=== PATIENT | female | born 1990 | race Caucasian/White ===

== ENCOUNTER 2017-05-15 17:52 | Emergency (ER) | payer MEDICAID ==
[2017-05-15 18:05] VITALS: TEMP 98.8
[2017-05-15 18:28] LABS: COLOR YELLOW; LEUKOCYTE ESTERASE,URINE NEGATIVE (NEGATIVE); NITRITE,URINE NEGATIVE (NEGATIVE)
[2017-05-15] MEDS ORDERED: NS 1,000 ML IV ONE (18:38)
[2017-05-15] MEDS ORDERED: ONDANSETRON 4 MG/2 ML VIAL IVP ONE ×3 (18:38→20:25)
[2017-05-15 18:54] LABS: % IMMATURE GRANULYOCYTES 0.3 % (0.0-1.1); ABSOLUTE IMMATURE GRANULOCYTES 0.03 10^3/uL (0.00-0.10); ADD DIFF? NO; ADD MORPH? NO; ADD SCAN? NO; ATYPICAL LYMPHOCYTE FLAG 0 (0-99); FRAGMENT RBC FLAG 0 (0-99); HEMOGLOBIN 14.2 g/dL (12.6-16.3); LEFT SHIFT FLG 0 (0-99); LIPEMIA HEMOLYSIS FLAG 90 (0-99); MEAN CELL HEMOGLOBIN 26.9 pg (27.9-34.1); MEAN CELL HEMOGLOBIN CONCENTR. 34.6 g/dL (32.4-36.7); MEAN CELL VOLUME 77.7 fL (81.5-99.8); MEAN PLATELET VOLUME 9.9 fL (8.7-11.7); PLATELET CLUMPS FLAG 0 (0-99); PLATELET COUNT 400 10^3/uL (150-400); RED BLOOD CELL COUNT 5.28 10^6/uL (4.18-5.33); RED CELL DISTRIBUTION WIDTH 12.6 % (11.5-15.2)
[2017-05-15] MEDS ORDERED: LIDOCAINE 1% 100 MG in NS 100 ML IV ONE (18:55)
--- NOTE | 2017-05-15 19:00 | EDPHY ---
H & P Stated Complaint: abd back pain urinary frequency x 3 days Time Seen by Provider: 05/15/17 18:47 HPI/ROS: CHIEF COMPLAINT: Bilateral lower abdominal pain HISTORY OF PRESENT ILLNESS: The patient is a 26-year-old female with a history of polycystic ovarian disease and several ovarian cysts that required surgical drainage who comes to the emergency department complaining of bilateral lower abdominal pain right greater than left. She has not had her appendix or gallbladder removed. She states that her symptoms have been present for about 4 days and fluctuating. She had a fever of 101 three days ago but it resolved over the last 2 days. She also has chronic low back pain and received steroid injections yesterday. She feels that this is a separate issue. She also complained of dysuria. She denies risk of . No vaginal bleeding or discharge. REVIEW OF SYSTEMS: Constitutional: denies: chills, fever, recent illness, recent injury EENTM: denies: blurred vision, double vision, nose congestion Respiratory: denies: cough, shortness of breath Cardiac: denies: chest pain, irregular heart rate, lightheadedness, palpitations Gastrointestinal/Abdominal: See HPI Genitourinary: denies: dysuria, frequency, hematuria, pain Musculoskeletal: denies: joint pain, muscle pain Skin: denies: lesions, rash, jaundice, bruising Neurological: denies: headache, numbness, paresthesia, tingling, dizziness, weakness Hematologic/Lymphatic: denies: blood clots, easy bleeding, easy bruising Immunologic/allergic: denies: HIV/AIDS, transplant EXAM: GENERAL: Well-appearing, obese and in no acute distress. HEAD: Atraumatic, normocephalic. EYES: Pupils equal round and reactive to light, extraocular movements intact, sclera anicteric, conjunctiva are normal. ENT: TMs normal, nares patent, oropharynx clear without exudates. Moist mucous membranes. NECK: Normal range of motion, supple without lymphadenopathy or JVD. LUNGS: Breath sounds clear to auscultation bilaterally and equal. No wheezes rales or rhonchi. HEART: Regular rate and rhythm without murmurs, rubs or gallops. ABDOMEN: Mild bilateral lower quadrant tenderness no guarding or rebound BACK: No CVA tenderness, no spinal tenderness, step-offs or deformities EXTREMITIES: Normal range of motion, no pitting or edema. No clubbing or cyanosis. NEUROLOGICAL: Cranial nerves II through XII grossly intact. Normal speech, normal gait. 5/5 strength, normal movement in all extremities, normal sensation PSYCH: Normal mood, normal affect. SKIN: Warm, dry, normal turgor, no visible rashes or lesions. Source: Patient Exam Limitations: No limitations - Personal History LMP (Females 10-55): 8-14 Days Ago Current Tetanus Diphtheria and Acellular Pertussis (TDAP): Yes Tetanus Vaccine Date: 12/2014 - Medical/Surgical History Hx Asthma: No Hx Chronic Respiratory Disease: No Hx Diabetes: No Hx Cardiac Disease: No Hx Renal Disease: No Hx Cirrhosis: No Hx Alcoholism: No Hx HIV/AIDS: No Hx Splenectomy or Spleen Trauma: No Other PMH: ANXIETY, HTN, TACHYCARDIA, DEPRESSION, FREQ UTI, PCOS, ORTHO, STAPH - Family History Significant Family History: No pertinent family hx - Social History Smoking Status: Heavy smoker Alcohol Use: Sober Drug Use: None Constitutional: Initial Vital Signs Temperature (C) 37.1 C 05/15/17 17:58 Heart Rate 98 05/15/17 17:58 Respiratory Rate 20 05/15/17 17:58 Blood Pressure 133/94 H 05/15/17 17:58 O2 Sat (%) 94 05/15/17 17:58 O2 Delivery Mode Room Air Allergies/Adverse Reactions: metoclopramide HCl [From Reglan] Allergy (Unknown, Verified 05/15/17 18:05) Home Medications: Medication Instructions Recorded Propranolol HCl [Inderal 20mg (*)] 60 mg PO BID #30 tab 02/16/15 QUEtiapine FUMARATE [Seroquel 100 100 mg PO HS #10 tab 02/16/15 mg (*)] clonIDINE [Catapres (*)] 0.2 mg PO TID #20 tab 02/16/15 tiZANidine HCL 03/08/15 Amlodipine Besylate 05/15/17 Effexor 05/15/17 Prazosin HCl 05/15/17 Medical Decision Making - Diagnostics Imaging Results: Imaging Impressions Pelvic/Renal Ultrasound 05/15/17 18:56 Impression: 1. There is a simple-appearing 2.6 cm right ovarian cyst, with no evidence of torsion or free fluid. 2. Trace endocervical canal fluid with some very mild echogenic fullness and trace venous flow, which is nonspecific. Correlation with a Pap smear is suggested, if not recently performed. Findings were discussed with JESSENIA SANCHEZ MD at 19:59, on 05/15/2017. Imaging: Discussed imaging studies w/ international account manager Radiologist ED Course/Re-evaluation: The patient is on a narcotic caution from 2014. At that time she had multiple prescriptions from multiple states and was reportedly lying to staff about how much opiates she was taking. I informed her that we would treat her with non narcotics here in the emergency department. 8:00 p.m. we discussed the patient's imaging and lab results which are overall reassuring. She is not having significant relief from the lidocaine. I will treat her with ketamine. She states that she is not supposed to get Toradol or ibuprofen because of her recent lumbar injection. She has had a Pap smear within the year. 8:50 p.m. the patient's pain is improving. We will try dose of Haldol. 9:15 p.m. the patient's pain is improved. She would like to go home. I will give her a take-home pack of Vicodin until she can follow up with OBGYN. Differential Diagnosis: Partial list of the Differential diagnosis considered include but were not limited to; ovarian cyst, ovarian torsion, appendicitis and although unlikely based on the history and physical exam, I also considered urinary tract infection, kidney stone, endometriosis, cancer, obstruction, C diff. I discussed these differential diagnoses and the plan with the patient as well as the usual and expected course. The patient understands that the diagnosis is provisional and that in medicine we are not always correct and that further workup is often warranted. Usual and customary warnings were given. All of the patient's questions were answered. The patient was instructed to return to the emergency department should the symptoms at all worsen or return, otherwise to followup with the physician as we discussed. - Data Points Laboratory Results: Laboratory Results 05/15/17 18:30 05/15/17 18:30 05/15/17 05/15/17 05/15/17 18:30 18:30 18:30 WBC 11.33 10^3/uL H 10^3/uL (3.80-9.50) RBC 5.28 10^6/uL 10^6/uL (4.18-5.33) Hgb 14.2 g/dL g/dL (12.6-16.3) Hct 41.0 % % (38.0-47.0) MCV 77.7 fL L fL (81.5-99.8) MCH 26.9 pg L pg (27.9-34.1) MCHC 34.6 g/dL g/dL (32.4-36.7) RDW 12.6 % % (11.5-15.2) Plt Count 400 10^3/uL 10^3/uL (150-400) MPV 9.9 fL fL (8.7-11.7) Neut % (Auto) 83.3 % H % (39.3-74.2) Lymph % (Auto) 14.0 % L % (15.0-45.0) Jay % (Auto) 1.2 % L % (4.5-13.0) Eos % (Auto) 0.8 % % (0.6-7.6) Baso % (Auto) 0.4 % % (0.3-1.7) Nucleat RBC Rel Count 0.0 % % (0.0-0.2) Absolute Neuts (auto) 9.44 10^3/uL H 10^3/uL (1.70-6.50) Absolute Lymphs (auto) 1.59 10^3/uL 10^3/uL (1.00-3.00) Absolute Monos (auto) 0.14 10^3/uL L 10^3/uL (0.30-0.80) Absolute Eos (auto) 0.09 10^3/uL 10^3/uL (0.03-0.40) Absolute Basos (auto) 0.04 10^3/uL 10^3/uL (0.02-0.10) Absolute Nucleated RBC 0.00 10^3/uL 10^3/uL (0-0.01) Immature Gran % 0.3 % % (0.0-1.1) Immature Gran # 0.03 10^3/uL 10^3/uL (0.00-0.10) Sodium 141 mEq/L mEq/L (134-144) Potassium 4.2 mEq/L mEq/L (3.5-5.2) Chloride 101 mEq/L mEq/L (97-110) Carbon Dioxide 22 mEq/l mEq/l (22-31) Anion Gap 18 mEq/L H mEq/L (8-16) BUN 7 mg/dL mg/dL (7-23) Creatinine 0.8 mg/dL mg/dL (0.6-1.0) Estimated GFR > 60 Glucose 179 mg/dL H mg/dL (70-100) Calcium 9.8 mg/dL mg/dL (8.5-10.4) Total Bilirubin 0.5 mg/dL mg/dL (0.1-1.4) Conjugated Bilirubin 0.3 mg/dL mg/dL (0.0-0.5) Unconjugated Bilirubin 0.2 mg/dL mg/dL (0.0-1.1) AST 38 IU/L IU/L (14-46) ALT 29 IU/L IU/L (9-52) Alkaline Phosphatase 115 IU/L IU/L (38-126) Total Protein 7.9 g/dL g/dL (6.3-8.2) Albumin 4.4 g/dL g/dL (3.5-5.0) Lipase 55 IU/L IU/L (23-300) Urine Color Urine Appearance Urine pH Ur Specific [place] Urine Protein Urine Ketones Urine Blood Urine Nitrate Urine Bilirubin Urine Urobilinogen Ur Leukocyte Esterase Urine Glucose Urine Test 05/15/17 05/15/17 18:20 18:20 WBC RBC Hgb Hct MCV MCH MCHC RDW Plt Count MPV Neut % (Auto) Lymph % (Auto) Jay % (Auto) Eos % (Auto) Baso % (Auto) Nucleat RBC Rel Count Absolute Neuts (auto) Absolute Lymphs (auto) Absolute Monos (auto) Absolute Eos (auto) Absolute Basos (auto) Absolute Nucleated RBC Immature Gran % Immature Gran # Sodium Potassium Chloride Carbon Dioxide Anion Gap BUN Creatinine Estimated GFR Glucose Calcium Total Bilirubin Conjugated Bilirubin Unconjugated Bilirubin AST ALT Alkaline Phosphatase Total Protein Albumin Lipase Urine Color YELLOW Urine Appearance CLEAR Urine pH 6.0 (5.0-7.5) Ur Specific [place] <= 1.005 (1.002-1.030) Urine Protein NEGATIVE (NEGATIVE) Urine Ketones NEGATIVE (NEGATIVE) Urine Blood NEGATIVE (NEGATIVE) Urine Nitrate NEGATIVE (NEGATIVE) Urine Bilirubin NEGATIVE (NEGATIVE) Urine Urobilinogen 0.2 EU EU (0.2-1.0) Ur Leukocyte Esterase NEGATIVE (NEGATIVE) Urine Glucose NEGATIVE (NEGATIVE) Urine Test NEGATIVE Medications Given: Discontinued Medications Hydrocodone Bitart/Acetaminophen ([place] 5/325mg Prepack#6) 1 btl TAKEHOME EDNOW ONE Stop: 05/15/17 21:15 Last Admin: 05/15/17 21:24 Dose: 1 btl Diphenhydramine HCl (Benadryl Injection) 25 mg IVP EDNOW ONE Stop: 05/15/17 18:56 Last Admin: 05/15/17 19:23 Dose: 25 mg Haloperidol Lactate (Haldol Injection) 2.5 mg IVP EDNOW ONE Stop: 05/15/17 20:49 Last Admin: 05/15/17 20:53 Dose: 2.5 mg Sodium Chloride (Ns) 1,000 mls @ 0 mls/hr IV ONCE ONE PRN Reason: Wide Open Stop: 05/15/17 18:39 Last Admin: 05/15/17 18:35 Dose: 1,000 mls Lidocaine HCl 100 mg/ Sodium (Chloride) 110 mls @ 600 mls/hr IV EDNOW ONE Stop: 05/15/17 19:05 Last Admin: 05/15/17 19:44 Dose: 110 mls Ketamine HCl (Ketamine) 21.2 mg 0.2 mg/kg (21.2 mg) IVP EDNOW ONE Stop: 05/15/17 20:07 Last Admin: 05/15/17 20:11 Dose: 21.2 mg Ondansetron HCl (Zofran) 4 mg IVP EDNOW ONE Stop: 05/15/17 18:39 Last Admin: 05/15/17 18:43 Dose: 4 mg Ondansetron HCl (Zofran) 4 mg IVP EDNOW ONE Stop: 05/15/17 20:21 Last Admin: 05/15/17 20:26 Dose: 4 mg Ondansetron HCl (Zofran) 4 mg IVP EDNOW ONE Stop: 05/15/17 20:26 Last Admin: 05/15/17 21:00 Dose: Not Given Departure - Departure Disposition: Home, Routine, Self-Care Clinical Impression: Ovarian cyst Qualifiers: Laterality: right Qualified Code(s): N83.201 - Unspecified ovarian cyst, right side Condition: Fair Instructions: Hydrocodone/Acetaminophen (By mouth), Ovarian Cyst (ED) Referrals: Carline Hernández MD [Primary Care Provider] - As per Instructions Juana Interiano MD [Medical Doctor] - As per Instructions
[2017-05-15 19:10] LABS: ANION GAP 18 mEq/L (8-16); CALCIUM 9.8 mg/dL (8.5-10.4); CARBON DIOXIDE 22 mEq/l (22-31); CHLORIDE 101 mEq/L (97-110); CREATININE 0.8 mg/dL (0.6-1.0); GLOMERULAR FILTRATION RATE > 60; GLUCOSE 179 mg/dL (70-100); POTASSIUM 4.2 mEq/L (3.5-5.2); SODIUM 141 mEq/L (134-144)
[2017-05-15 19:13] LABS: ALBUMIN 4.4 g/dL (3.5-5.0); BILIRUBIN,TOTAL 0.5 mg/dL (0.1-1.4); BILIRUBIN-CONJUGATED 0.3 mg/dL (0.0-0.5); BILIRUBIN-UNCONJUGATED 0.2 mg/dL (0.0-1.1); TOTAL PROTEIN 7.9 g/dL (6.3-8.2)
[2017-05-15 20:01] VITALS: PULSE 108
[2017-05-15] MEDS ORDERED: KETAMINE 100 MG/10 ML SYR IVP ONE (20:06)
[2017-05-15] MEDS ORDERED: HALOPERIDOL LACT 5 MG/ML INJ IVP ONE (20:48)
[2017-05-15] MEDS ORDERED: HYDROCOD/APAP 5/325 PREPACK#6 BTL TAKEHOME ONE (21:14)
[2017-05-15 21:32] VITALS: BP 157/97; RESP 15; O2SAT 92
== END 2017-05-15 21:29 | disposition home or self-care (01) ==
LOC: CED 17:52
DX: N83.201 Unspecified ovarian cyst, right side (principal); I10 Essential (primary) hypertension; F17.200 Nicotine dependence, unspecified, uncomplicated; E86.9 Volume depletion, unspecified
CPT/HCPCS: 76856-PO; 80048-PO; 80076-PO; 81003-PO; 81025-PO; 83690-PO; 85025-PO; 96365; J1200; J1630; J2405

== ENCOUNTER 2017-11-14 09:38 | Day surgery (SDC) | payer MEDICAID ==
[2017-11-14] MEDS ORDERED: LIDOCAINE 1% 300 MG/30 ML SDV SC ONE (09:40)
--- NOTE | 2017-11-14 10:11 | PDHPUP ---
History & Physical Update H&P update statement: This history and physical update is based on an assessment of the patient which was completed after admission or registration (within 24 hours), but prior to the surgery/procedure. H&P update: H&P reviewed & patient examined, no change in patient's condition since H&P completed
--- NOTE | 2017-11-14 11:05 | CPIP ---
[f rep st] INVASIVE CARDIAC PROCEDURE DATE OF PROCEDURE: 11/14/2017 INDICATIONS: The patient is 26 years old with a history of palpitations. She has had previous outpa tient telemetry monitoring without an identified etiology. She is referred by Dr. Jack Oro for i mplantation of an injectable loop recorder. PROCEDURE: Implantation of an injectable loop recorder. TECHNIQUE: Following informed consent, in the fasting state, the patient was brought to the CVC. Be cause of her body habitus and large breasts, we chose to use the 3rd intercostal space. This was yanci ntified by landmarks. The area was prepped and draped in the usual sterile fashion. The procedure w as performed in a sterile fashion. 2% lidocaine was infiltrated into the skin overlying the 2nd inte rcostal space. Using the #15 blade, a small incision was made and using the supplied blade with the device, this incision was carried down into the skin. The device was then injected underneath the sk in. The skin was then closed with 2 karuna. Hemostasis was achieved with manual pressure. COMPLICATIONS: None. DEVICE INFORMATION: [employer], serial number [id number]. /[id number]/[id number]
== END 2017-11-14 11:00 | disposition home or self-care (01) ==
LOC: FCATH 09:38
PROVIDERS: ATTEND Internal Medicine Cardiovascular Disease
PROC: 0JH602Z Insertion of Monitoring Device into Chest Subcutaneous Tissue and Fascia, Open Approach (ICD-10-PCS; principal; 2017-11-14)
DX: R00.0 Tachycardia, unspecified (principal); M54.5 Low back pain; F32.9 Major depressive disorder, single episode, unspecified; E78.5 Hyperlipidemia, unspecified; G47.33 Obstructive sleep apnea (adult) (pediatric); Z86.73 Personal history of transient ischemic attack (TIA), and cerebral infarction without residual deficits
CPT/HCPCS: 36415-PO; 84481-90; C1764